=== PATIENT | female | born 1995 ===

== ENCOUNTER 2020-07-27 07:05 | Day surgery (SDC) | payer OTHER | END 2020-07-27 12:35 | disposition home or self-care (01) | LOC: AMB-ENDOS 07:05 | PROVIDERS: ATTEND Surgery | DX: D13.1 Benign neoplasm of stomach (principal); K44.9 Diaphragmatic hernia without obstruction or gangrene; Z20.822 Contact with and (suspected) exposure to COVID-19 ==